=== PATIENT | male | born 1985 | race Two or more races ===

== ENCOUNTER 2018-01-05 12:17 | Emergency (ER) | payer SELFPAY ==
[~2018-01-05] VITALS: Ht 170.2 cm; Wt 115.7 kg
[2018-01-05 12:29] VITALS: BP 147/95
[2018-01-05] MEDS ORDERED: IBUPROFEN 800 MG TABLET. PO ONE (12:30)
[2018-01-05] MEDS ORDERED: OFLO5DRO7 EACH EAR (12:33)
--- NOTE | 2018-01-05 12:34 | PHYS DOC ---
Adult General Chief Complaint Chief Complaint: EARACHE/EAR PAIN HPI HPI Patient is a 32 year old male who presents with pain and swelling to the ear canal of his left ear. The patient states that the pain began last night. He did take a dose of penicillin that he had at home. He tried ibuprofen and Tylenol at home with little relief. He denies fever, congestion or sore throat. Review of Systems Review of Systems Constitutional: Denies fever or chills [] Eyes: Denies change in visual acuity, redness, or eye pain [] HENT: See history of present illness Respiratory: Denies cough or shortness of breath [] Cardiovascular: No additional information not addressed in HPI [] Neurologic: Denies headache, focal weakness or sensory changes [] Endocrine: Denies polyuria or polydipsia [] All other systems were reviewed and found to be within normal limits, except as documented in this note. Current Medications Current Medications Current Medications Medications (Trade) Dose Ordered Sig/Amrit Start Time Stop Time Status Last Admin Dose Admin Ibuprofen (Motrin) 800 mg 1X ONCE 01/05/18 12:30 01/05/18 12:38 DC 01/05/18 12:39 800 MG Allergies Allergies Allergies Coded Allergies Type Severity Reaction Last Updated Verified No Known Drug Allergies 01/05/18 No Physical Exam Physical Exam Constitutional: Well developed, well nourished, no acute distress, non-toxic appearance. [] HENT: Normocephalic, atraumatic, right tympanic membrane and canal are normal, left canal is erythematous and edematous, tympanic membrane is normal on the left, oropharynx moist, no oral exudates, nose normal. [] Eyes: PERRLA, EOMI, conjunctiva normal, no discharge. [] Neck: Normal range of motion, no tenderness, supple, no stridor. [] Cardiovascular:Heart rate regular rhythm, no murmur [] Lungs & Thorax: Bilateral breath sounds clear to auscultation [] Abdomen: Bowel sounds normal, soft, no tenderness, no masses, no pulsatile masses. [] Skin: Warm, dry, no erythema, no rash. [] Neurologic: Alert and oriented X 3, normal motor function, normal sensory function, no focal deficits noted. [] Psychologic: Affect normal, judgement normal, mood normal. [] Current Patient Data Vital Signs Vital Signs Date Time Temp Pulse Resp B/P (MAP) Pulse Ox O2 Delivery O2 Flow Rate FiO2 01/05/18 12:29 99.0 105 16 147/95 (112) 95 Room Air 99.0 EKG EKG [] Radiology/Procedures Radiology/Procedures [] Course & Med Decision Making Course & Med Decision Making Pertinent Labs and Imaging studies reviewed. (See chart for details) [] Dragon Disclaimer Dragon Disclaimer This electronic medical record was generated, in whole or in part, using a voice recognition dictation system. Departure Departure Impression: Primary Impression: Otitis externa Disposition: HOME, SELF-CARE Condition: STABLE Patient Instructions: Otitis Externa Additional Instructions: Use the drops as prescribed. Follow-up with your primary care provider for recheck in 4 days if not improving or return to the emergency department if worsening. You may take ibuprofen or Tylenol for pain. Scripts Ofloxacin (OFLOXACIN) 5 Ml Drops 5 DROP EACH EAR BID for 7 Days, #10 ML Prov: MINA STRANGE APRN 01/05/18 MINA STRANGE APRN Jan 05, 2018 12:34
== END 2018-01-05 12:42 | disposition home or self-care (01) ==
LOC: ER 12:17
DX: H60.92 Unspecified otitis externa, left ear (principal)
CPT/HCPCS: 99283